=== PATIENT | female | born 1940 | race Caucasian/White ===

== ENCOUNTER 2017-12-23 08:40 | Emergency (ER) | payer OTHER ==
[~2017-12-23] VITALS: Ht 571.8 cm; Wt 71.3 kg
[2017-12-23 10:33] VITALS: BP 123/76
== END 2017-12-23 10:35 | disposition home or self-care (01) ==
LOC: ER 08:40
DX: Z00.8 Encounter for other general examination (principal)
CPT/HCPCS: 99281